=== PATIENT | male | born 1935 | race Caucasian/White ===

== ENCOUNTER → 2021-08-19 12:56 | Outpatient (BNVA) | payer MEDICARE, SELFPAY | PROVIDERS: PCP Internal Medicine; Visit Provider Psychiatry & Neurology Neurology | DX: F03.91 Unspecified dementia, unspecified severity, with behavioral disturbance (principal) | CPT/HCPCS: 99212 ==

== ENCOUNTER → 2022-02-26 11:29 | Outpatient (BNVA) | payer MEDICARE, SELFPAY | PROVIDERS: PCP Internal Medicine; Visit Provider Psychiatry & Neurology Neurology | DX: F03.918 Unspecified dementia, unspecified severity, with other behavioral disturbance (principal) | CPT/HCPCS: 99212 ==

== ENCOUNTER 2022-10-20 08:52 | Outpatient (AMB) | payer MEDICARE, SELFPAY ==
--- NOTE | 2022-10-20 09:23 | MHC.OFFVIS ---
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 He has episodes of confusion. He lives with his who helps with his activities of daily living. Pt is dependant in all his daily activities. Pt's is 83 y/o and having difficulty to take care of the patient. He is still irritable at times and also paranoid.He is not motivated to shower, not motivated to eat. He has day night reversal. He wakes up frequently and tries to go out. Pt's gives him melatonin 5 mg around 3 am to help him go back to sleep. He is not physically active and sleeps during daytime. He has occasional hallucinations. [facility] Family History Mother Breast cancer Social History (Updated 10/20/22 @ 09:28 by Nereida Colbert CMA) Household Members: Spouse Alcohol intake: never Patient Tobacco Use Status: Never used Tobacco Review of Systems Const All systems reviewed & are unremarkable except as noted in HPI and below Physical Exam Vital Signs: Last Vital Signs Pulse 77 10/20/22 09:28 BP 96/62 10/20/22 09:28 Pulse Ox 96 10/20/22 09:28 Oxygen Delivery Method Room Air 10/20/22 09:28 Const General: cooperative and comfortable Nutritional Appearance: cachectic and thin HEENT Face and sinus: Yes normal facial exam Neuro General: gait normal, tone normal and moves all extremities Gait exam (Neuro): Other gait observations present (mild wide based) Motor exam (neuro): 5/5 motor strength present throughout Psych Appearance: grossly normal Assessment & Plan Assessment & Plan (1) Dementia: Code(s): F03.90 - Unspecified dementia, unspecified severity, without behavioral disturbance, psychotic disturbance, mood disturbance, and anxiety (2) Behavioral change: Code(s): R46.89 - Other symptoms and signs involving appearance and behavior Plan Continue aricept 23mg qd and Namenda 10mg bid. Continue to take sertraline 50mg q daily. Advised melatonin 5 mg qHS 30 min before bedtime. Encouraged patient to engage in social and physical activity during daytime. Refer patient for VNA services. Orders: [facility]errals [facility] Referral F03.90 - Unspecified dementia, unspecified severity, without behavioral disturbance, psychotic disturbance, mood disturbance, and anxiety, R46.89 - Other symptoms and signs involving appearance and behavior Medications: Changed From sertraline 50 mg PO DAILY 30 tabs 6RF To sertraline 50 mg PO DAILY 30 days 30 tabs 6RF Refilled donepezil 23 mg PO BEDTIME 90 tabs 3RF memantine 10 mg PO BID 30 days 60 tabs 6RF Coding Level of Care Code Est Pt Level 4 (86703) Diagnoses Dementia F03.90 Behavioral change R46.89
[2022-10-20 09:28] VITALS: BP 96/62; PULSE 77; O2SAT 96
== END 2022-10-20 09:59 | disposition home or self-care (01) ==
PROVIDERS: Visit Provider Nurse Practitioner Family
DX: F03.90 Unspecified dementia, unspecified severity, without behavioral disturbance, psychotic disturbance, mood disturbance, and anxiety (principal)
CPT/HCPCS: 99214

== ENCOUNTER → 2022-10-20 08:52 | Outpatient (BNVA) | payer MEDICARE, SELFPAY | PROVIDERS: Visit Provider Nurse Practitioner Family | DX: F03.90 Unspecified dementia, unspecified severity, without behavioral disturbance, psychotic disturbance, mood disturbance, and anxiety (principal); Z79.899 Other long term (current) drug therapy | CPT/HCPCS: 99212 ==

== ENCOUNTER 2023-04-22 11:28 | Outpatient (AMB) | payer MEDICARE, SELFPAY ==
--- NOTE | 2023-04-22 11:31 | A.OFFVIS_ITS ---
Intake Vital Signs 04/22/23 11:39 Weight 129 lb 4 oz BP 100/60 Blood Pressure Location Lt brachial Position Sitting Pulse 61 Pulse Source Pulse Oximeter Pulse Oximetry (%) 96 Oxygen Delivery Method Room Air Intake Visit Reasons: 6m follow up-CONF Intake Note: Patient presents for 6 month f/u. Waking up during the night a lot and stays up for long periods of time. Allergies No Known Allergies Allergy (Verified 04/22/23 11:35) HPI HPI Comments History of Present Illness Details 88 y/o male comes for dementia with beha vior issues. Pt is accompanied by his son. Pt's son reports no changes in cognitive or behavior. He lives with his who helps with his activities of daily living. Pt is dependant in all his daily activities. VNA ordered, but his son was told that he is not qualified for VNA. He takes donepezil 23 mg daily and memantine 10 mg BID. He is still irritable at times and also paranoid. He is not motivated to do ADLs or other activities. Pt's son tried get him outside to walk, but he did not like and was not cooperative. Pt has difficulty sleeping, goes to bed 9 pm but wakes up 11 pm, he walk around, wakes his up. It takes time to go back to sleep. He uses melatonin 5 mg qHS. He is not physically active and sleeps during daytime. He has occasional visual hallucinations, but not make him irritable. [facility] Family History Mother Breast cancer Social History (Updated 10/20/22 @ 09:28 by Nereida Colbert CMA) Household Members: Spouse Alcohol intake: never Patient Tobacco Use Status: Never used Tobacco Review of Systems Const All systems reviewed & are unremarkable except as noted in HPI and below Physical Exam Const General: cooperative and comfortable Nutritional Appearance: cachectic and thin HEENT Face and sinus: Yes normal facial exam Neuro General: gait normal, tone normal and moves all extremities Gait exam (Neuro): Other gait observations present (mild wide based) Motor exam (neuro): 5/5 motor strength present throughout Psych Appearance: grossly normal Assessment & Plan Assessment & Plan (1) Dementia: Code(s): F03.90 - Unspecified dementia, unspecified severity, without behavioral disturbance, psychotic disturbance, mood disturbance, and anxiety (2) Behavioral change: Code(s): R46.89 - Other symptoms and signs involving appearance and behavior (3) Sleeping difficulty: Code(s): G47.9 - Sleep disorder, unspecified Plan Continue aricept 23mg qd and Namenda 10mg bid. Continue to take sertraline 50mg q daily. Advised melatonin 5 mg qHS along with trazodone 25 mg at bedtime. Encouraged patient to engage in social and physical activity during daytime. Medications: New trazodone Please cut medication for the patient. 25 mg (1/2 x 50 mg) PO BEDTIME 90 days 45 tabs 1RF Coding Level of Care Code Est Pt Level 3 (74243) Diagnoses Dementia F03.90 Behavioral change R46.89 Sleeping difficulty G47.9
[2023-04-22 11:39] VITALS: BP 100/60; PULSE 61; O2SAT 96
== END 2023-04-22 12:00 | disposition home or self-care (01) ==
LOC: HO.HSMS 11:29
PROVIDERS: PCP Internal Medicine; Visit Provider Nurse Practitioner Family
DX: F03.918 Unspecified dementia, unspecified severity, with other behavioral disturbance (principal); G47.9 Sleep disorder, unspecified
CPT/HCPCS: 99213

== ENCOUNTER → 2023-04-22 11:28 | Outpatient (BNVA) | payer MEDICARE, SELFPAY | PROVIDERS: PCP Internal Medicine; Visit Provider Nurse Practitioner Family | DX: F03.90 Unspecified dementia, unspecified severity, without behavioral disturbance, psychotic disturbance, mood disturbance, and anxiety (principal); R46.89 Other symptoms and signs involving appearance and behavior; G47.9 Sleep disorder, unspecified | CPT/HCPCS: 99212 ==

== ENCOUNTER 2023-09-14 11:33 | Outpatient (AMB) | payer MEDICARE, SELFPAY ==
--- NOTE | 2023-09-14 11:36 | A.OFFVIS_ITS ---
Vital Signs 09/14/23 11:38 Height 5 ft 4 in Weight 117 lb BMI 20.1 BP 128/70 Blood Pressure Location Rt brachial Position Sitting Respiration 17 Pulse 60 Pulse Source Palpation Intake Visit Reasons: follow up - LVM w/add Intake Note: Pt presents for a 5 month follow up for behavioral changes. 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 Pt is accompanied by his son.His behavior is worse, refusing to take medications, taking showers, dressing up etc. He lives with his who helps with his activities of daily living. Pt is dependant in all his daily activities. He tried meals on wheels - did not like it. VNA ordered, but his son was told that he is not qualified for VNA. He takes donepezil 23 mg daily and memantine 10 mg BID. He is still irritable at times and also paranoid. He uses melatonin 5 mg qHS. He is not physically active and sleeps during daytime. He has occasional visual hallucinations, but not make him irritable. [facility] [place] Family History Mother Breast cancer Social History Household Members: Spouse Alcohol intake: never Patient Tobacco Use Status: Never used Tobacco Review of Systems Neuro Reports confusion Psych Reports confusion Physical Exam Vital Signs: Last Vital Signs Pulse 60 09/14/23 11:38 Resp 17 09/14/23 11:38 BP 128/70 09/14/23 11:38 BMI result Body Mass Index 20.1 Const General: cooperative, comfortable and confusion Nutritional Appearance: cachectic and thin Orientation/consciousness: confusion HEENT Face and sinus: Yes normal facial exam Neuro General: gait normal, tone normal, moves all extremities and confusion Cognition (Neuro): abnormal cognition Gait exam (Neuro): Other gait observations present (mild wide based) Motor exam (neuro): 5/5 motor strength present throughout Psych Appearance: grossly normal Assessment & Plan Assessment & Plan (1) Dementia: Code(s): F03.90 - Unspecified dementia, unspecified severity, without behavioral disturbance, psychotic disturbance, mood disturbance, and anxiety Category: Medical (2) Behavioral change: Code(s): R46.89 - Other symptoms and signs involving appearance and behavior Category: Medical (3) Sleeping difficulty: Code(s): G47.9 - Sleep disorder, unspecified Category: Medical Plan Continue aricept 23mg qd and Namenda 10mg bid. Continue to take sertraline 50mg q daily. Advised melatonin 5 mg qHS along with trazodone 25 mg at bedtime. Encouraged patient to engage in social and physical activity during daytime. 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 I suggested they call insurance . Coding Level of Care Code Est Pt Level 4 (83948) Diagnoses Dementia F03.90 Behavioral change R46.89 Sleeping difficulty G47.9
[2023-09-14 11:38] VITALS: BP 128/70; PULSE 60; RESP 17; BMI 20.1
== END 2023-09-14 12:12 | disposition home or self-care (01) ==
PROVIDERS: PCP Internal Medicine; Visit Provider Psychiatry & Neurology Neurology
DX: F03.90 Unspecified dementia, unspecified severity, without behavioral disturbance, psychotic disturbance, mood disturbance, and anxiety (principal); R46.89 Other symptoms and signs involving appearance and behavior; G47.9 Sleep disorder, unspecified
CPT/HCPCS: 99214

== ENCOUNTER → 2023-09-14 11:33 | Outpatient (BNVA) | payer MEDICARE, SELFPAY | PROVIDERS: PCP Internal Medicine; Visit Provider Psychiatry & Neurology Neurology | DX: F03.90 Unspecified dementia, unspecified severity, without behavioral disturbance, psychotic disturbance, mood disturbance, and anxiety (principal); R46.89 Other symptoms and signs involving appearance and behavior; G47.9 Sleep disorder, unspecified | CPT/HCPCS: 99212 ==